=== PATIENT | female | born 2000 | race Caucasian/White ===

== ENCOUNTER 2025-07-07 15:48 | Emergency (ER) | payer OTHER, SELFPAY ==
[2025-07-07 15:51] VITALS: BP 132/68
--- NOTE | 2025-07-07 17:18 | ED.GENMED ---
History of Present Illness
General
Chief Complaint: Allergic Reaction
Source: patient and family (mom)
Time Seen by Provider: 07/07/25 17:11
History of Present Illness
History of Present Illness:
24-year-old female presents to the emergency room for evaluation of an allergic reaction. Patient ate a cookie which may have contained nuts which she is allergic to. Patient developed nausea, sensation that her throat was closing and difficulty
swallowing. She administered her EpiPen, took 50 mg of Benadryl and 20 mg of Pepcid. Her symptoms have essentially resolved.
Past History
Past History
ED Past Medical History: Asthma
ED Past Surgical History: None
Social History
Tobacco: Non-smoker
Alcohol: None
Drug: None
Personal: Single
Living: with family
Employment: Student
Family History
Family History: Other (nc)
Phy Exam
Physical Exam
Physical Exam:
General: Awake, Alert, Oriented X3. No acute distress.
Vitals: unremarkable
Head: Atraumatic
Eyes: Pupils equal, EOMI
Throat: Airway intact, no exudates
Neck: Trachea midline
Lungs: Clear and equal b/l
Heart: Regular rate, no murmurs
Abd: Soft, Nontender, No pulsatile mass
Neuro: Nonfocal
Skin: Warm, dry, no rash
Extremities: pulses equal b/l, no edema
Course
Orders/Labs/Results
Orders:
Orders
07/07/25 17:18
Ondansetron Orally Disint [Zofran Odt (Orally Disintegrating)] 4 mg PO NOW STA
Prednisone [Deltasone] 50 mg PO NOW STA
Vital Signs
Initial and Last Documented VS:
Initial Vital Signs
Temp Pulse Resp BP Pulse Ox
98.1 F 77 18 132/68 100
07/07/25 15:51 07/07/25 15:51 07/07/25 15:51 07/07/25 15:51 07/07/25 15:51
Last Documented Vital Signs
Temp Pulse Resp BP Pulse Ox
98.1 F 77 18 132/68 100
07/07/25 15:51 07/07/25 15:51 07/07/25 15:51 07/07/25 15:51 07/07/25 17:20
MDM/Problems Addressed
Differential Diagnosis Includes:
Allergic reaction to nuts, some other component in her food
MDM/Problems Addressed:
Patient presents with allergic reaction. She medicated prior to arrival with Benadryl, Pepcid and epi. She is relatively asymptomatic here. Dose of prednisone given patient observed for a couple hours without recurrence of her symptoms. Stable
for discharge home. Prescription sent for replacement EpiPen's.
*Pulse Oximetry
SaO2: 100
Oxygen Mode of Delivery: Room air
Patient hypoxic: no
*Critical Care Note
Total Time (30-74mins, 75-104mins- exclusive of procedures): Not Applicable
ED Attending Note
-
Portions of this chart may have been created with voice recognition software.� Occasional wrong word or��sound alike� substitutions may have occurred due to the inherent limitations of voice recognition software.
Discharge Plan
Departure
Patient Disposition: Home (Routine Discharge)
Date of Disposition: 07/07/25
Time of Disposition: 18:37
Patient with high blood pressure during this ER visit?: No
Condition: Good
Discharge Problem:
Allergic reaction
Instructions: Allergic reaction - ED (DC)
Prescriptions:
New
epinephrine [EpiPen 2-Sebastian] 0.3 mg/0.3 mL auto-injector
0.3 mg IM Q5-15M PRN (Reason: anaphylaxis) Qty: 2 0RF
prednisone 20 mg tablet
40 mg PO DAILY Qty: 6 0RF
No Action
diphenhydramine HCl [Banophen] 50 MG capsule
50 mg PO ONCE
Ibs Medication
1 tab PO BID
Patient Comments:
pt unsure of med
epinephrine [EpiPen] 0.3 MG/0.3/SYRINGE auto-injector
0.3 mg IM .STAT PRN (Reason: significant allergic reaction) Qty: 1 0RF
prednisone 50 MG tablet
50 mg PO DAILY Qty: 4 0RF
Interventions
Interventions:
*General Assessment Last Done: 07/07/25 17:20
*Neglect/Abuse Screening Last Done: 07/07/25 18:45
*ED COVID-19 Vaccine History Last Done: 07/07/25 15:51
*ED Influenza Vaccine History Last Done: 07/07/25 15:51
[facility] Fall Risk Assessment Tool Last Done: 07/07/25 17:20
*Risk Screen - Suicide (C-SSRS) Last Done: 07/07/25 15:51
*Nursing Disposition Last Done: 07/07/25 18:45
ED- Cardiac Assessment Last Done: 07/07/25 17:20
ED- Pulmonary Assessment Last Done: 07/07/25 17:20
ED-Skin Assessment Last Done: 07/07/25 17:20
Discharge Date and Time
Discharge Date/Time: 07/07/25 18:48
Print Language: [id number]
[2025-07-07 17:19] VITALS: BMI 24.3
[2025-07-07] MEDS: ZOFRAN ODT (ORALLY DISINTEGRATING) 4 MG PO (17:27)
[2025-07-07] MEDS: DELTASONE 50 MG PO (17:28)
== END 2025-07-07 18:48 | disposition home or self-care (01) ==
LOC: EMR 15:48
PROVIDERS: EMERGENCY PHYSICIAN Emergency Medicine
DX: R13.10 Dysphagia, unspecified (principal); R11.0 Nausea; T78.19XA Other adverse food reactions, not elsewhere classified, initial encounter; X58.XXXA Exposure to other specified factors, initial encounter
CPT/HCPCS: 99283